=== PATIENT | female | born 1955 | race Caucasian/White ===

== ENCOUNTER → 2017-02-02 | Outpatient (CLI) | payer OTHER | LOC: CT 09:53 | DX: R91.1 Solitary pulmonary nodule (principal); Z91.041 Radiographic dye allergy status | CPT/HCPCS: 71250 ==

== ENCOUNTER → 2021-06-15 | Outpatient (CLI) | payer OTHER | LOC: KOH-I 08:18 | DX: R91.1 Solitary pulmonary nodule (principal); R91.8 Other nonspecific abnormal finding of lung field | CPT/HCPCS: 71046 ==

== ENCOUNTER → 2021-06-20 | Outpatient (CLI) | payer OTHER | LOC: KOH-I 10:43 | DX: R91.1 Solitary pulmonary nodule (principal) | CPT/HCPCS: 71250 ==